=== PATIENT | female | born 1970 | race Caucasian/White ===

== ENCOUNTER → 2018-06-21 | Outpatient (CLI) | payer OTHER ==
[2018-06-21 14:39] LABS: Basophils # (A) 0.1 k/uL (0-0.2); Basophils % (A) 1 %; Eosinophils # (A) 0.3 k/uL (0-0.7); Eosinophils % (A) 5 %; HCT 37.8 % (34.0-46.0); HGB 11.4 gm/dL (11.4-16.0); Hypochromasia Slight; Lymphocytes # (A) 1.6 k/uL (1.0-4.8); Lymphocytes % (A) 24 %; MCHC 30.1 g/dL (31.0-37.0); MCV 83.3 fL (80.0-100.0); Mean Platelet Volume 6.3; Monocytes # (A) 0.3 k/uL (0-1.0); Monocytes % (A) 5 %; Neutrophils # (A) 4.1 k/uL (1.3-7.7); Neutrophils % (A) 63 %; Platelet Count 283 k/uL (150-450); RBC 4.54 m/uL (3.80-5.40); RDW 14.5 % (11.5-15.5); WBC 6.4 k/uL (3.8-10.6)
== END | disposition home or self-care (01) ==
LOC: LABPAT 13:15
PROVIDERS: ATTEND Obstetrics & Gynecology
DX: Z01.812 Encounter for preprocedural laboratory examination (principal); N92.0 Excessive and frequent menstruation with regular cycle; N94.6 Dysmenorrhea, unspecified
CPT/HCPCS: 36415; 85025

== ENCOUNTER 2018-07-05 07:52 | Day surgery (SDC) | payer OTHER ==
[2018-06-27 11:53] VITALS: BMI 31.1
--- NOTE | 2018-07-04 17:02 | HP ---
HISTORY AND PHYSICAL REASON FOR ADMISSION: Date of procedure will be 07/05/2018. HISTORY: This is a 47-year-old 2, para 2 woman with a longstanding history of pelvic pain, dysmenorrhea, and dysfunctional uterine bleeding. She was diagnosed by laparoscopy with endometriosis in 2001. She has heavy menses occurring every 3-6 weeks, lasting 4-5 days with severe pain that can keep her home from work. Evaluation with pelvic ultrasound and endometrial biopsy were benign with no pelvic abnormalities appreciated. She therefore elects to undergo NovaSure endometrial ablation with diagnostic hysteroscopy for control of her dysfunctional uterine bleeding. ALLERGY: None. MEDICATIONS: Ibuprofen 200 mg p.r.n. PAST MEDICAL HISTORY: Endometriosis. PAST SURGICAL HISTORY: Diagnostic laparoscopy in 1991 and 1996. RESIDENT INTERN PAST HISTORY: She is a 2, para 2 woman with history of 2 vaginal deliveries. She is not currently using control. No history of abnormal Pap smears or STDs. SOCIAL HISTORY: She is . Negative for tobacco, alcohol, and drug use. FAMILY HISTORY: Significant for heart attack in paternal grandmother and brain cancer in paternal grandfather. REVIEW OF SYSTEMS: Positive for fatigue, dysmenorrhea, pelvic pain, heavy menstrual bleeding. Negative for nausea, vomiting, diarrhea, constipation, shortness of breath, chest pain, headaches, fevers, chills, recent weight gain or weight loss. PHYSICAL EXAM: Height 5 feet 6-1/2 inches. Weight 204 pounds. Blood pressure 120/70. In general, this is a pleasant female in no obvious distress. HEENT exam is unremarkable with no palpable lymphadenopathy or thyromegaly. The lungs are clear to auscultation bilaterally and the heart is of regular rate and rhythm with no detectable murmur. ABDOMEN: Soft and nontender with no rebound, no guarding and no flank pain. On pelvic examination, she has normal female external genitalia without lesions or irritation. On bimanual examination, uterus is small, mobile and in the midline and there are no adnexal adenopathy palpable. ASSESSMENT: This is a 47-year-old 2, para 2 woman with a longstanding history of pelvic pain, dysmenorrhea, and dysfunctional uterine bleeding. She is scheduled to undergo diagnostic hysteroscopy with NovaSure endometrial ablation on 07/05/2018. Risks of this procedure include, but are not limited to bleeding, infection, uterine perforation, ongoing bleeding and/or postprocedure pelvic pain. The patient understands these risks and agrees to proceed. She also understands this is not a contraceptive procedure and that is contraindicated and can be quite complicated after the procedure. She and her acknowledge this and plan to use condoms as needed. MMODL / IJN: [id number] /
[~2018-07-05 07:52] MED LIST: DEXAMETHASONE SOD PHOSPHATE 10 MG/ML 1 ML VIAL IV ONE; HYDROmorphone 0.5 MG/0.5 ML SYRINGE IVP PRN; LACTATED RINGERS 1,000 ML IV SCH; LIDOCAINE 1% 20 ML VIAL (10MG/ML) FOR IV START INTRADERMA PRN; MIDAZOLAM 2 MG/2 ML VIAL IV PRN; ONDANSETRON 4 MG/2 ML VIAL IVP ONE; Pre Op ABX Message 1 EACH MISC MISCELLANE ONE; SCOPOLAMINE 1.5MG/72HR PATCH TRANSDERM ONE
[2018-07-05] MEDS ORDERED: KETOROLAC 30 MG/ML 1 ML VIAL ONE (09:23)
[2018-07-05] MEDS ORDERED: PROPOFOL 10 MG/ML 20 ML VIAL IV ONE (09:23)
[2018-07-05] MEDS ORDERED: MIDAZOLAM 2 MG/2 ML VIAL ONE (09:23)
[2018-07-05] MEDS ORDERED: LIDOCAINE 1% INJ 10MG/ML (20 ML MDV) ONE (09:23)
[2018-07-05] MEDS ORDERED: fentaNYL (PF) 50 MCG/ML 2 ML AMP ONE (09:23)
[2018-07-05] MEDS ORDERED: LIDOCAINE 1%-EPI 1:100,000 20 ML VIAL SUBMUCOSAL ONE ×2 (09:34→09:47)
--- NOTE | 2018-07-05 10:07 | P.OP ---
Date of Procedure: 07/05/18 Preoperative Diagnosis: Menometrorrhagia Dysmenorrhea Postoperative Diagnosis: Menometrorrhagia Dysmenorrhea Procedure(s) Performed: Diagnostic hysteroscopy, NovaSure endometrial ablation Anesthesia: MAC Surgeon: Lizet Yu Estimated Blood Loss (ml): 5 IV fluids (ml): 400 Urine output (ml): 50 Pathology: none sent Condition: stable Disposition: PACU Operative Findings: Fluffy endometrium with no gross intracavitary lesions Description of Procedure: After the patient and her family were met in the preoperative holding area and all questions were answered, she was taken to the operating room where anesthetic was administered without incident. She was in positioned, prepped and draped in the dorsal lithotomy position. Bladder was drained for approximately 50 mL of clear urine. Speculum was placed in the vagina and the cervix was grasped anteriorly with a single-tooth tenaculum. Paracervical block with lidocaine plus epinephrine was placed. The cervix sounded to 8.0 cm. The cervix was then sequentially dilated with Hegar dilators to allow for passage of the diagnostic hysteroscope. Hysteroscope was introduced and the above findings were noted. The hysteroscope was removed and the cervix was further dilated to allow for passage of the NovaSure ablation device. The device was inserted with a cavity length of 5.0 cm, width of 3.3 cm. cavity assessment test was passed and the device was enabled for a treatment cycle of 72 seconds with a power of 91 W. Following cessation of the treatment cycle the device was removed and the hysteroscope was reintroduced. Unfortunately there was an area at the fundus of the uterus that did not appear to be completely blanched however the remainder of the uterus showed the good desiccation. The hysteroscope was removed as was the tenaculum. The cervix was observed and hemostasis was noted. All instruments were then removed from the vagina and the patient was awoken from anesthetic. She is transported recovery area in stable condition. All counts reported to me as correct.
[2018-07-05 10:17] VITALS: TEMP 97.7
[2018-07-05] MEDS ORDERED: LACTATED RINGERS 1,000 ML IV ONE (10:34)
[2018-07-05] MEDS ORDERED: IBUPROFEN 200 MG TAB PO ONE (11:35)
[2018-07-05 12:29] VITALS: BP 136/88; PULSE 70; RESP 18
== END 2018-07-05 12:09 | disposition home or self-care (01) ==
LOC: OR 07:52
PROVIDERS: ATTEND Obstetrics & Gynecology
DX: N92.1 Excessive and frequent menstruation with irregular cycle (principal); N94.6 Dysmenorrhea, unspecified; R10.2 Pelvic and perineal pain; N93.8 Other specified abnormal uterine and vaginal bleeding; N80.9 Endometriosis, unspecified; Z80.8 Family history of malignant neoplasm of other organs or systems
CPT/HCPCS: 58563; 81025; J2250; J1100; J2405; J2001; J3010; J1885; J2704; J1170

== ENCOUNTER → 2018-07-19 | Outpatient (CLI) | payer OTHER ==
--- NOTE | 2018-07-19 13:20 | ECHOF ---
Referral Reason:R07.89 chest pain MEASUREMENTS -------- HEIGHT: 172.7 cm WEIGHT: 93.0 kg BP: IVSd: 1.1 cm (0.6 - 1.1) LVIDd: 3.5 cm (3.9 - 5.3) LVPWd: 1.2 cm (0.6 - 1.1) IVSs: 1.5 cm LVIDs: 1.7 cm LVPWs: 1.5 cm LAESV Index (A-L): 18.09 ml/m Ao Diam: 3.1 cm (2.0 - 3.7) AV Cusp: 2.0 cm (1.5 - 2.6) LA Diam: 3.0 cm (2.7 - 3.8) MV EXCURSION: 17.701 mm (> 18.000) MV EF SLOPE: 170 mm/s (70 - 150) MV E Jose C: 0.72 m/s MV DecT: 150 ms MV A Jose C: 0.82 m/s MV E/A Ratio: 0.88 RAP: 5.00 mmHg RVSP: 25.25 mmHg FINDINGS -------- Sinus rhythm. Undetermined rhythm. This was a technically good study. The left ventricular size is normal. There is borderline concentric left ventricular hypertrophy. Overall left ventricular systolic function is normal with, an EF between 55 - 60 %. The right ventricle is normal in size. Normal LA size by volume 22+/-6 ml/m2. The right atrial size is normal. The aortic valve is trileaflet and appears structurally normal. There is trace mitral regurgitation. Trace tricuspid regurgitation present. The right ventricular systolic pressure, as measured by Dopp ler, is 25.25mmHg. There is no pulmonic regurgitation present. The aortic root size is normal. Normal inferior vena cava with normal inspiratory collapse consistent with estimated right atrial pre ssure of 5 mmHg. There is no pericardial effusion. CONCLUSIONS -------- 1. Sinus rhythm. 2. Undetermined rhythm. 3. This was a technically good study. 4. The left ventricular size is normal. 5. There is borderline concentric left ventricular hypertrophy. 6. Overall left ventricular systolic function is normal with, an EF between 55 - 60 %. 7. The right ventricle is normal in size. 8. Normal LA size by volume 22+/-6 ml/m2. 9. The right atrial size is normal. 10. The aortic valve is trileaflet and appears structurally normal. 11. There is trace mitral regurgitation. 12. Trace tricuspid regurgitation present. 13. The right ventricular systolic pressure, as measured by Doppler, is 25.25mmHg. 14. There is no pulmonic regurgitation present. 15. The aortic root size is normal. 16. Normal inferior vena cava with normal inspiratory collapse consistent with estimated right atrial pressure of 5 mmHg. 17. There is no pericardial effusion. APPLICATION DEVELOPMENT TEAM LEAD: Beth Shearer RDCS
--- NOTE | 2018-07-19 13:59 | EST ---
EXERCISE STRESS AGE: 47 SEX: F HT: 68" WT: 205 PROTOCOL: Arnoldo Stress Test STAGE: 2 DURATION OF EXERCISE: 6:00 HEART RATE REST: 82 BLOOD PRESSURE REST: 115/77 MAXIMUM HEART RATE ACHIEVED: 147 MAXIMUM BLOOD PRESSURE: 220/91 85% MPHR: 145 100% MPHR: 171 METS: 7.3 INDICATIONS: Chest pain. CLINICAL INFORMATION: Baseline EKG revealed normal sinus rhythm with voltage criteria for LVH and also mild ST abnormality to begin with. Patient walked for 6 minutes, achieved a maximal heart rate of 147 beats per minute which is 86% of predicted maximal. She developed fatigue and shortness of breath but did not have any anginal symptoms. EKG revealed more prominent inferolateral ST-segment abnormality. However, given her resting EKG changes, these are considered inconclusive findings. No anginal symptoms were noted. No arrhythmia was noted. The patient had hypertensive response and peak blood pressure was 220/91 and resting blood pressure was 115/77. By EKG criteria, this is considered as an inconclusive stress test because of resting EKG changes with limited exercise capacity. If myocardial ischemia is strongly suspected, I would recommend optimizing her blood pressure control and then performing either a stress echo or cardiac catheterization. Possibility of this being a false-positive should also be considered. MMODL / IJN: [id number] /
== END ==
LOC: RADNMMAIN 10:26
PROVIDERS: ATTEND Family Medicine
DX: R07.89 Other chest pain (principal); I51.7 Cardiomegaly
CPT/HCPCS: 93017; 93306

== ENCOUNTER → 2018-08-04 | Day surgery (SDC) | payer OTHER ==
[2018-08-02 13:02] VITALS: BMI 31.1
[~2018-08-04] MED LIST changes: -DEXAMETHASONE SOD PHOSPHATE 10 MG/ML 1 ML VIAL IV ONE; -HYDROmorphone 0.5 MG/0.5 ML SYRINGE IVP PRN; +LIDOCAINE 1% INJ 10MG/ML (20 ML MDV) ONE; -MIDAZOLAM 2 MG/2 ML VIAL IV PRN; -ONDANSETRON 4 MG/2 ML VIAL IVP ONE; +ONDANSETRON 4 MG/2 ML VIAL ONE; +PROPOFOL 10 MG/ML 20 ML VIAL IV ONE; -Pre Op ABX Message 1 EACH MISC MISCELLANE ONE; -SCOPOLAMINE 1.5MG/72HR PATCH TRANSDERM ONE
--- NOTE | 2018-08-04 09:16 | P.GSHP ---
History of Present Illness H&P Date: 08/04/18 CHIEF COMPLAINT: Colon screen HISTORY OF PRESENT ILLNESS: The patient is a 47-year-old female who presents for colon screen. Lower endoscopy was offered for further evaluation and management. PAST MEDICAL HISTORY: Please see list. PAST SURGICAL HISTORY: Please see list. MEDICATIONS: Please see list. ALLERGIES: Please see list. SOCIAL HISTORY: No illicit drug use FAMILY HISTORY: No reports of Crohn disease or ulcerative colitis. REVIEW OF ORGAN SYSTEMS: CONSTITUTIONAL: No reports of fevers or chills. PHYSICAL EXAM: VITAL SIGNS: Stable GENERAL: Well-developed pleasant in no acute distress. HEENT: No scleral icterus. Extraocular movements grossly intact. Moist buccal mucosa. NECK: Supple without lymphadenopathy. CHEST: Unlabored respirations. Equal bilateral excursions. CARDIOVASCULAR: Regular rate and rhythm. Distal 2+ pulses. ABDOMEN: Soft, nontender, nondistended. MUSCULOSKELETAL: No clubbing, cyanosis, or edema. ASSESSMENT: 1. Colon screen. PLAN: 1. Recommend proceeding with a lower endoscopy Past Medical History Past Medical History: Chest Pain / Angina, Musculoskeletal Disorder Additional Past Medical History / Comment(s): LOW BACK PAIN & PINCHED NERVE NECK CAUSES HEADACHE SEES CHIROPRACTOR. HEAVY MENSTRUAL PERIODS; ENDOMETRIOSIS. CP FEW WEEKS AGO, HAD STRESS TEST & ECHO. History of Any Multi-Drug Resistant Organisms: None Reported Past Surgical History: Uterine Ablation Additional Past Surgical History / Comment(s): EXPLORATORY LAP. 07/05/18 UTERINE ABLATION. Past Anesthesia/Blood Transfusion Reactions: Previous Problems w/ Anesthesia, Family History of Problems w/ Anesthesia, Postoperative Nausea & Vomiting (PONV) Additional Past Anesthesia/Blood Transfusion Reaction / Comment(s): PATIENT HAS DIFFICULTY WAKING UP AFTER SURGERY. MOTHER AND GRANDMOTHER = PONV & DIFFICULTY WAKING UP. Smoking Status: Never smoker - Past Family History Mother Family Medical History: No Reported History Medications and Allergies Home Medications Medication Instructions Recorded Confirmed Type Cholecalciferol [Vitamin D3] 5,000 unit PO DAILY 06/27/18 08/02/18 History Ferrous Sulfate [Feosol] 325 mg PO DAILY 06/27/18 08/02/18 History Ibuprofen 600 mg PO DIRECTED PRN 06/27/18 08/02/18 History diphenhydrAMINE [Benadryl] 25 mg PO BID PRN 06/27/18 08/02/18 History Allergies Allergy/AdvReac Type Severity Reaction Status Date / Time No Known Allergies Allergy Verified 08/02/18 12:46
[2018-08-04 09:48] VITALS: RESP 16; TEMP 97.6
--- NOTE | 2018-08-04 10:40 | P.PCN ---
Date of Procedure: 08/04/18 Description of Procedure: PREOPERATIVE DIAGNOSIS: Family history of colon cancer Personal history of colon polyps Colonoscopy screening POSTOPERATIVE DIAGNOSIS: Family history of colon cancer Personal history of colon polyps Colonoscopy screening OPERATION: Colonoscopy to the ileocecal valve and appendiceal orifice. SURGEON: Kacy yIer MD. ANESTHESIA: MAC. INDICATIONS: The patient is a 47-year-old female who presents for colonoscopy screening. Benefits and risks were described and informed consent was obtained. DESCRIPTION OF PROCEDURE: The patient had undergone Gatorade, MiraLAX and Dulcolax prep. She had been brought into the operating room and laid in the left lateral decubitus position. After adequate intravenous sedation, the rectum was examined with 2% lidocaine jelly. No external hemorrhoids were encountered. The rectal tone was within normal limits. No lesions were palpated in the rectal vault. An Olympus colonoscope was advanced until the ileocecal valve and appendiceal orifice were clearly viewed. The prep was good. The scope was removed with visualization of each mucosal fold. No scattered diverticulosis was encountered. No colonic polyps were found. No evidence of focal colitis was found. Retroflexion of the scope demonstrated grade 1 internal hemorrhoids without active bleeding or inflammation. The colon was desufflated. The patient had tolerated the procedure well. Withdrawal time was over 6 minutes. FINDINGS: Aronchick preparation quality scale 1 (1-5) No internal hemorrhoids No external prolapsed hemorrhoids. No arteriovenous malformations. No adenomatous polyps. No focal colitis. No scattered diverticulosis was encountered. RECOMMENDATIONS: Lower endoscopy in 5 years, 2023. Plan - Discharge Summary Discharge Rx Participant: No New Discharge Prescriptions: No Action Cholecalciferol [Vitamin D3] 5,000 unit PO DAILY diphenhydrAMINE [Benadryl] 25 mg PO BID PRN PRN Reason: Allergy Symptoms Ferrous Sulfate [Feosol] 325 mg PO DAILY Ibuprofen 600 mg PO DIRECTED PRN PRN Reason: Pain Discharge Medication List Cholecalciferol [Vitamin D3] 5,000 unit PO DAILY 06/27/18 [History] Ferrous Sulfate [Feosol] 325 mg PO DAILY 06/27/18 [History] Ibuprofen 600 mg PO DIRECTED PRN 06/27/18 [History] diphenhydrAMINE [Benadryl] 25 mg PO BID PRN 06/27/18 [History] Follow up Appointment(s)/Referral(s): Kacy Iyer MD [STAFF PHYSICIAN] - 09/06/18 Patient Instructions/Handouts: *[facility] - (Anesthesia) Endoscopy Discharge Instructions, Colonoscopy (DC) Activity/Diet/Wound Care/Special Instructions: Repeat colonoscopy in 5 years, 2023 Discharge Disposition: HOME SELF-CARE
[2018-08-04 10:53] VITALS: BP 126/78; PULSE 74
== END | disposition home or self-care (01) ==
LOC: ORWHC2ENDO 09:11
PROVIDERS: ATTEND Surgery Plastic and Reconstructive Surgery
DX: Z12.11 Encounter for screening for malignant neoplasm of colon (principal); K64.0 First degree hemorrhoids; I20.9 Angina pectoris, unspecified; Z86.010 Personal history of colon polyps; Z80.0 Family history of malignant neoplasm of digestive organs; G58.8 Other specified mononeuropathies; M54.12 Radiculopathy, cervical region; Z79.1 Long term (current) use of non-steroidal anti-inflammatories (NSAID)
CPT/HCPCS: 81025; J2405; J2001; J2704; G0105

== ENCOUNTER → 2019-10-20 | Outpatient (CLI) | payer OTHER ==
[2019-10-20 12:40] LABS: Basophils # (A) 0.1 k/uL (0-0.2); Basophils % (A) 1 %; Eosinophils # (A) 0.3 k/uL (0-0.7); Eosinophils % (A) 5 %; HCT 41.2 % (34.0-46.0); HGB 13.1 gm/dL (11.4-16.0); Lymphocytes # (A) 1.5 k/uL (1.0-4.8); Lymphocytes % (A) 26 %; MCH 27.3 pg (25.0-35.0); MCHC 31.7 g/dL (31.0-37.0); MCV 86.3 fL (80.0-100.0); Mean Platelet Volume 7.1; Monocytes # (A) 0.2 k/uL (0-1.0); Monocytes % (A) 4 %; Neutrophils # (A) 3.6 k/uL (1.3-7.7); Neutrophils % (A) 62 %; Platelet Count 244 k/uL (150-450); RBC 4.78 m/uL (3.80-5.40); RDW 13.4 % (11.5-15.5); WBC 5.8 k/uL (3.8-10.6)
[2019-10-20 12:53] LABS: African American GFR (CKD) >90 (>60 ml/min/1.73 sqM); Anion Gap 8 mmol/L; Blood Urea Nitrogen 15 mg/dL (7-17); Carbon Dioxide 23 mmol/L (22-30); Chloride 107 mmol/L (98-107); Glucose 115 mg/dL (74-99); Non-African American GFR(CKD) >90 (>60 ml/min/1.73 sqM); Potassium 4.6 mmol/L (3.5-5.1); Sodium 138 mmol/L (137-145)
== END | disposition home or self-care (01) ==
LOC: LABPAT 10:59
PROVIDERS: ATTEND Obstetrics & Gynecology Obstetrics
DX: Z01.818 Encounter for other preprocedural examination (principal); N85.7 Hematometra
CPT/HCPCS: 80051; 82565; 82947; 84520; 85025; 87086

== ENCOUNTER → 2019-10-26 | Outpatient (CLI) | payer OTHER | END | disposition home or self-care (01) | LOC: LABWHC1 10:10 | PROVIDERS: ATTEND Obstetrics & Gynecology Obstetrics | DX: Z01.810 Encounter for preprocedural cardiovascular examination (principal) | CPT/HCPCS: 36415; 93005 ==

== ENCOUNTER 2019-10-30 07:20 | Day surgery (SDC) | payer OTHER ==
[2019-10-25 15:41] VITALS: BMI 28.8
[~2019-10-30 07:20] MED LIST changes: +DEXAMETHASONE SOD PHOSPHATE 10 MG/ML 1 ML VIAL IV ONE; +HYDROmorphone 0.5 MG/0.5 ML SYRINGE IVP PRN; -LACTATED RINGERS 1,000 ML IV SCH; +LIDOCAINE 1% (10MG/ML) FOR IV START INTRADERMA PRN; -LIDOCAINE 1% 20 ML VIAL (10MG/ML) FOR IV START INTRADERMA PRN; -LIDOCAINE 1% INJ 10MG/ML (20 ML MDV) ONE; -ONDANSETRON 4 MG/2 ML VIAL ONE; -PROPOFOL 10 MG/ML 20 ML VIAL IV ONE; +SCOPOLAMINE 1.5MG/72HR PATCH TRANSDERM ONE
[2019-10-30] MEDS ORDERED: ONDANSETRON 4 MG/2 ML VIAL ONE (07:56)
[2019-10-30] MEDS: LACTATED RINGERS 1,000 ML IV SCH ×2 (08:00→09:10)
[2019-10-30] MEDS: ACETAMINOPHEN IV (For NPO) 1,000 MG in EMPTY BAG 1 BAG IVPB ONE ×2 (08:10→09:10)
[2019-10-30] MEDS: ONDANSETRON 4 MG/2 ML VIAL IVP ONE ×2 (08:16→11:50)
[2019-10-30] MEDS ORDERED: LIDOCAINE 1% INJ 10MG/ML (20 ML MDV) ONE (09:06)
[2019-10-30] MEDS ORDERED: PROPOFOL 10 MG/ML 20 ML VIAL IV ONE (09:06)
[2019-10-30] MEDS ORDERED: fentaNYL (PF) 50 MCG/ML 2 ML AMP ONE (09:06)
[2019-10-30] MEDS ORDERED: SUCCINYLCHOLINE CHLORIDE 100 MG/5 ML SYR IV ONE (09:06)
[2019-10-30] MEDS ORDERED: MIDAZOLAM 2 MG/2 ML VIAL ONE (09:06)
[2019-10-30] MEDS ORDERED: NEOSTIGMINE 1 MG/ML 10 ML VIAL ONE (09:06)
[2019-10-30] MEDS ORDERED: GLYCOPYRROLATE 0.2 MG/ML 2 ML VIAL ONE (09:06)
[2019-10-30] MEDS ORDERED: ROCURONIUM BROMIDE 10 MG/ML 5 ML VIAL IV ONE (09:06)
[2019-10-30] MEDS ORDERED: Acetaminophen-Codeine 300-30mg TAB PO PRN ×2 (09:11)
[2019-10-30] MEDS ORDERED: IBUPROFEN 600 MG TAB PO PRN (09:11)
[2019-10-30] MEDS ORDERED: ONDANSETRON 4 MG/2 ML VIAL IVP PRN (09:11)
[2019-10-30] MEDS ORDERED: SIMETHICONE 80 MG CHEWABLE PO PRN (09:11)
[2019-10-30] MEDS ORDERED: BUPIVACAINE (PF) 0.25% 30 ML VIAL SQ ONE (10:09)
[2019-10-30] MEDS ORDERED: IBUPROFEN IV 800 MG in SODIUM CHLORIDE 0.9% 250 ML IV ONE (10:49)
--- NOTE | 2019-10-30 10:58 | P.OP ---
Date of Procedure: 10/30/19 Preoperative Diagnosis: Hematometra, pelvic pain, left lower quadrant pain Postoperative Diagnosis: Same plus endometriosis Procedure(s) Performed: Robotic-assisted vaginal hysterectomy with bilateral salpingo-oophorectomy, diagnostic cystoscopy Anesthesia: GRZEGORZ Surgeon: Alison Calixto Flatbed Driver #1: Lizet Yu Estimated Blood Loss (ml): 50 IV fluids (ml): 500 Urine output (ml): 100 Pathology: other (Uterus cervix bilateral fallopian tubes and ovaries) Condition: stable Disposition: PACU Indications for Procedure: This pleasant 48-year-old female underwent endometrial ablation in July 2018, and had increased pain. Patient presented for ultrasound in the office and noted an endometrial was visualized. She has a prior history of endometriosis diagnosed by laparoscopy, on ultrasound in addition she had a noted left endometrioma. Patient desired definitive treatment with hysterectomy. Operative Findings: Enlarged globular uterus multiple endometrial implants bilateral ovaries adherent to the posterior uterine wall/pelvic sidewall. Diagnostic cystoscopy is performed after procedure, normal bladder mucosa is noted circumferentially after a complete survey of the bladder both ureteral orifices were spilling clear yellow urine. Description of Procedure: Patient was seen in the preoperative area and informed consent is obtained. Risks are reviewed and patient states understanding. Patient was taken back to the operating suite where general anesthesia was obtained without difficulty by the anesthesia department. She was prepped and draped in normal sterile fashion in the dorsal lithotomy position. A weighted speculum was placed in the posterior vaginal vault the interval of the cervix was grasped with a single- tooth tenaculum. Endocervical canal was dilated and a V care uterine manipulator was advanced into the uterus as a means to manipulate the uterus strep procedure the cervical cap was placed snugly against the cervix and all instruments were removed. Attention was then turned the patient's abdomen where approximately 2 finger breaths above the umbilicus a small skin incision is made. Through this incision the Veress needles placed. Once the Veress needle was deemed to be in the proper position with a drop of CO2 pressure CO2 insufflation was allowed to occur. 3 L of gas or used to obtain pneumoperi toneum. At this time the additional port sites are placed at 10 cm lateral and 3/7 inferior to midline port these are 8 mm ports and placed under direct visualization. The left upper quadrant a 12 mm trocar and sleeve is placed under direct visualization. The da Jillian robot was docked in the usual fashion at this time. The operative ports are now placed in the right operative arm the monopolar scissors is placed in the left operative arm the bipolar forceps is placed. Attention then turned to the to the left adnexa the left fallopian tube was grasped and the ovary and fallopian tube were bluntly dissected off of the posterior pelvic sidewall and uterus. Drainage of endometrioma on the left ovary was noted at the time of dissection. The left infundibulopelvic ligament was visualized at this time grasped distally and proximal plane divided. Hemostasis was appreciated. This continued through the broad and toward the round which was coagulated distally and proximally divided. Multiple collateral vessels were noted and these were grasped coagulated and transected. Hemostasis was appreciated. The bladder flap from the left was then created using sharp and blunt dissection. Attention then turned to the patient's right adnexa which was also noted to be adherent to the posterior uterine wall/pelvic sidewall. The right ovary was bluntly dissected off of the posterior uterine wall the right infundibulopelvic ligament was visualized coagulated distally approximately divided. Hemostasis was appreciated. This continued through the broad toward the round which is coagulative distally proximal plane divided. The bladder flap from the right was then created using sharp and blunt dissection once again collateral vasculature was noted anteriorly these were coagulated distally proximal plane divided hemostasis was appreciated. The ascending branch the uterine artery on the right was visualized regular distally and proximally and divided. This was then repeated on the opposite side. At this time the uterus is noted to be. The ulnar remaining attachment at this time was a vaginal attachment therefore colpotomy incision was made and circumference of fashion uterus fallopian tubes and ovaries were then delivered through the vaginal opening. The pelvis then copiously irrigated. The vaginal cuff was then closed with 0 Vicryl in a [id number] fashion 4. Hemostasis was appreciated. At this time the da Jillian robot was undocked and all instrument were removed. Attention was then turned the patient's Ma catheter which was removed without difficulty of note the urine was noted be clear throughout the procedure. The cystoscope was opened placed through the urethra toward the bladder bladder bubble was noted a complete survey of the bladder noted normal bladder mucosa both ureteral orifices were spilling clear yellow urine. The cystoscope was removed and the Ma catheter was replaced. Attention then turned the patient's abdomen where the skin incisions were closed with 4-0 Vicryl in a subcu fashion Steri-Strips and sterile dressings were applied as needed. Lidocaine was instilled in the fall. All counts were noted be correct 2. Patient tolerated procedure well was taken the recovery room awake in stable condition.
[2019-10-30] MEDS ORDERED: LACTATED RINGERS 1,000 ML IV ONE (12:11)
[2019-10-30] MEDS: BENZOCAINE/MENTHOL LOZENG 1 EACH LOZENGE MUCOUS MEM PRN ×2 (16:57→21:26)
[2019-10-30] MEDS: SENNOSIDES-DOCUSATE SODIUM 1 EACH TAB PO SCH (19:54)
[2019-10-31 05:16] VITALS: RESP 16
[2019-10-31 06:12] LABS: Basophils % (A) 0 %; Eosinophils # (A) 0.1 k/uL (0-0.7); Eosinophils % (A) 0 %; HCT 39.7 % (34.0-46.0); HGB 12.9 gm/dL (11.4-16.0); Lymphocytes # (A) 1.2 k/uL (1.0-4.8); Lymphocytes % (A) 8 %; MCHC 32.5 g/dL (31.0-37.0); MCV 86.2 fL (80.0-100.0); Mean Platelet Volume 7.1; Monocytes # (A) 0.5 k/uL (0-1.0); Monocytes % (A) 4 %; Neutrophils # (A) 12.9 k/uL (1.3-7.7); Neutrophils % (A) 87 %; Platelet Count 247 k/uL (150-450); RDW 13.1 % (11.5-15.5); WBC 14.8 k/uL (3.8-10.6)
[2019-10-31] MEDS: LACTATED RINGERS 1,000 ML IV SCH (06:35)
--- NOTE | 2019-10-31 08:27 | P.DS ---
Providers Date of admission: 10/30/2019 Expected date of discharge: 10/31/19 Attending physician: Alison Calixto Primary care physician: Antoine Hanna - Discharge Diagnosis(es) (1) Hematometra Current Visit: Yes Status: Acute (2) Endometrioma of ovary Current Visit: Yes Status: Acute (3) LLQ pain Current Visit: Yes Status: Acute (4) Endometriosis Current Visit: Yes Status: Acute Hospital Course: This pleasant 48-year-old female presented to the hospital yesterday for planned robotic-assisted vaginal hysterectomy with left salpingo-for ectomy, diagnostic cystoscopy. Patient has a known history of endometriosis. Patient had an endometrial ablation done in July which initially was successful subsequently started having increased pain, ultrasound was completed and endometrial was noted. In addition left ovarian endometrioma was visualized. Patient elected definitive treatment given these findings and her history of endometriosis. She was taken back to the operating suite where bilateral endometriomas were noted. Surgery was completed without difficulty. For further details on the surgery please see the operative report. Patient's postoperative course has been uneventful. On this postop day #1 she is ambulatory and voiding without difficulty. She states her pain is well- controlled. She denies concerns. She notes positive bowel sounds, and denies vaginal bleeding. Patient Condition at Discharge: Good Plan - Discharge Summary Discharge Rx Participant: Yes New Discharge Prescriptions: No Action diphenhydrAMINE [Benadryl] 25 mg PO BID PRN PRN Reason: Allergy Symptoms Ibuprofen 400 mg PO DIRECTED PRN PRN Reason: Pain traMADol HCL [Ultram] 50 mg PO Q6HR PRN PRN Reason: Pain lisinopriL [Zestril] 10 mg PO DAILY Cholecalciferol (Vitamin D3) [Vitamin D3] 125 mcg PO Q48H Discharge Medication List Ibuprofen 400 mg PO DIRECTED PRN 06/27/18 [History] diphenhydrAMINE [Benadryl] 25 mg PO BID PRN 06/27/18 [History] Cholecalciferol (Vitamin D3) [Vitamin D3] 125 mcg PO Q48H 10/25/19 [History] lisinopriL [Zestril] 10 mg PO DAILY 10/25/19 [History] traMADol HCL [Ultram] 50 mg PO Q6HR PRN 10/25/19 [History] Patient Instructions/Handouts: Vaginal Delivery (DC), Vaginal Delivery (GEN) Discharge Disposition: HOME SELF-CARE
[2019-10-31 08:59] VITALS: BP 119/69; PULSE 66; TEMP 98.3
[2019-10-31] MEDS: SENNOSIDES-DOCUSATE SODIUM 1 EACH TAB PO SCH (09:22)
== END 2019-10-31 09:15 | disposition home or self-care (01) ==
LOC: OR 07:20 → 4FBP 11:17 → OR 10-31 09:15
PROVIDERS: ATTEND Obstetrics & Gynecology Obstetrics
DX: D25.1 Intramural leiomyoma of uterus (principal); N80.1 Endometriosis of ovary; N72 Inflammatory disease of cervix uteri; N80.0 Endometriosis of uterus; N70.11 Chronic salpingitis; N83.12 Corpus luteum cyst of left ovary; N83.11 Corpus luteum cyst of right ovary; N83.291 Other ovarian cyst, right side
CPT/HCPCS: 81025; 86900; 86901; 85025; 86850; 88307; 58552; J1100; J0690; J2405; J0131; J1741; J1170

== ENCOUNTER → 2020-03-15 | Outpatient (CLI) | payer OTHER ==
--- NOTE | 2020-03-15 14:40 | MM ---
Reason for exam: screening (asymptomatic). Baseline mammogram. History: Patient is postmenopausal. Took hormonal contraceptives beginning at age 17. Physical Findings: Nurse did not find any significant physical abnormalities on exam. MG Screening Mammo w CAD Bilateral CC and MLO view(s) were taken. XCCL view(s) were taken of the right breast. The breast tissue is heterogeneously dense. This may lower the sensitivity of mammography. There is no discrete abnormality. These results were verbally communicated with the patient and result sheet given to the patient on 03/15/20. ASSESSMENT: Benign, BI-RAD 2 RECOMMENDATION: Routine screening mammogram of both breasts in 1 year.
== END | disposition home or self-care (01) ==
LOC: RADMAMWWP 13:33
PROVIDERS: ATTEND Obstetrics & Gynecology
DX: Z12.31 Encounter for screening mammogram for malignant neoplasm of breast (principal)
CPT/HCPCS: 77067

== ENCOUNTER → 2022-11-17 | Outpatient (CLI) | payer OTHER ==
--- NOTE | 2022-11-17 08:50 | MM ---
Reason for Exam: Screening (asymptomatic). Last mammogram was performed 2 year(s) and 8 month(s) ago. Patient History: Menarche at age 11. First Full-Term at age 24. Left ovary removed at age 48. Right ovary removed at age 48. Hysterectomy at age 48. Postmenopausal. Hormonal Contraceptives, from age 17 until age 30. Currently using Estrogen and Progesterone, starting at age 48. Risk Values: Blanca 5 year model risk: 1.2%. NCI Lifetime model risk: 9.4%. Prior Study Comparison: 03/15/2020 Bilateral Screening Mammogram, [facility]. Tissue Density: The breast tissue is heterogeneously dense. This may lower the sensitivity of mammography. Findings: Analyzed By CAD. There is no suspicious group of microcalcifications or new suspicious mass in either breast. Overall Assessment: Negative, BI-RAD 1 Management: Screening Mammogram of both breasts in 1 year. A clinical breast exam by your physician is recommended on an annual basis and results should be correlated with mammographic findings. Note on Blanca scores and lifetime risk: 1. A Blanca score greater than 3% is considered moderate risk. If this is the case, consider specialist referral to assess eligibility for a risk reducing agent. If overall lifetime risk for the development of breast cancer is 20% or higher, the patient may qualify for future screening with alternating mammogram and breast MRI. Electronically signed and approved by: Gerson Parker D.O.
== END | disposition home or self-care (01) ==
LOC: RADMAMWWP 07:58
PROVIDERS: ATTEND Obstetrics & Gynecology
DX: Z12.31 Encounter for screening mammogram for malignant neoplasm of breast (principal); Z78.0 Asymptomatic menopausal state
CPT/HCPCS: 77067

== ENCOUNTER 2023-08-03 09:04 | Emergency (ER) | payer OTHER ==
[2023-08-03 09:15] LABS: Glucose,Whole Blood 193 mg/dL (70-110)
[2023-08-03 09:35] VITALS: RESP 16; TEMP 98
--- NOTE | 2023-08-03 10:02 | ED ---
General Adult HPI - General Chief complaint: Syncope Stated complaint: syncope Time Seen by Provider: 08/03/23 09:07 Source: patient Mode of arrival: wheelchair Limitations: no limitations - History of Present Illness Initial comments: Dictation was produced using [employer] dictation software. please excuse any grammatical, word or spelling errors. Chief Complaint: 52-year-old female with syncopal episode History of Present Illness: Patient 52-year-old female she was sent to the emergency department from the urgent care. Patient states that her symptoms began 2 days ago where she had an episode where she felt like she was feeling hot flash. Patient then found herself on the floor. Patient states that she did come have some neck pain left shoulder and left elbow pain. Patient did also notice that there was some vomiting next to her. Today she still feeling a little lightheaded. Patient denies any history of cardiac disease. Patient denies any significant medical history. The ROS documented in this emergency department record has been reviewed and confirmed by me. Those systems with pertinent positive or negative responses have been documented in the HPI. All other systems are other negative and/or noncontributory. - Related Data Home Medications Medication Instructions Recorded Confirmed Ibuprofen 400 mg PO DIRECTED PRN 06/27/18 10/30/19 diphenhydrAMINE [Benadryl] 25 mg PO BID PRN 06/27/18 10/30/19 Cholecalciferol (Vitamin D3) 125 mcg PO Q48H 10/25/19 10/30/19 [Vitamin D3] lisinopriL [Zestril] 10 mg PO DAILY 10/25/19 10/30/19 traMADol HCL [Ultram] 50 mg PO Q6HR PRN 10/25/19 10/30/19 Allergies Allergy/AdvReac Type Severity Reaction Status Date / Time No Known Allergies Allergy Verified 08/03/23 09:13 Review of Systems ROS Statement: Those systems with pertinent positive or pertinent negative responses have been documented in the HPI. ROS Other: All systems not noted in ROS Statement are negative. Past Medical History Past Medical History: Chest Pain / Angina, Musculoskeletal Disorder Additional Past Medical History / Comment(s): LOW BACK PAIN & PINCHED NERVE NECK CAUSES HEADACHE SEES CHIROPRACTOR. HEAVY MENSTRUAL PERIODS; ENDOMETRIOSIS. CP FEW WEEKS AGO, HAD STRESS TEST & ECHO., Patient takes hormones (testosterone pellet every 3 months) (progesteron every night) History of Any Multi-Drug Resistant Organisms: None Reported Past Surgical History: Uterine Ablation Additional Past Surgical History / Comment(s): EXPLORATORY LAP. 07/05/18 UTERINE ABLATION. colonoscopy Past Anesthesia/Blood Transfusion Reactions: Previous Problems w/ Anesthesia, Family History of Problems w/ Anesthesia, Postoperative Nausea & Vomiting (PONV) Additional Past Anesthesia/Blood Transfusion Reaction / Comment(s): PATIENT HAS DIFFICULTY WAKING UP AFTER SURGERY. MOTHER AND GRANDMOTHER = PONV & DIFFICULTY WAKING UP. Past Psychological History: No Psychological Hx Reported Smoking Status: Never smoker Past Alcohol Use History: None Reported Past Drug Use History: None Reported - Past Family History Mother Family Medical History: No Reported History General Exam - General Exam Comments Initial Comments: PHYSICAL EXAM: General Impression: Alert and oriented x3, not in acute distress HEENT: Normocephalic atraumatic, extra-ocular movements intact, pupils equal and reactive to light bilaterally, mucous membranes moist, some swelling to the left supraclavicular space Cardiovascular: Heart regular rate and rhythm Chest: Able to complete full sentences, no retractions, no tachypnea Abdomen: abdomen soft, non-tender, non-distended, no organomegaly Musculoskeletal: Pulses present and equal in all extremities, no peripheral edema Motor: no focal deficits noted Neurological: CN II-XII grossly intact, no focal motor or sensory deficits noted Skin: Intact with no visualized rashes Psych: Normal affect and mood Limitations: no limitations Course Vital Signs 08/03/23 09:07 Temperature 98.0 F Pulse Rate 84 Respiratory 16 Rate Blood Pressure 118/73 O2 Sat by Pulse 100 Oximetry EKG Findings - EKG Comments: EKG Findings:: My EKG interpretation: Ventricular rate 83, sinus rhythm,. 139, cures 118, QTc 388. No CA prolongation, no QTC prolongation,. T wave inversions in the septal lateral precordial leads and inferior leads. Overall this EKG is nonspecific Medical Decision Making - Medical Decision Making Was pt. sent in by a medical professional or institution (, PA, RIDE MECHANIC, urgent care, hospital, or senior care...) When possible be specific @ -No Did you speak to anyone other than the patient for history (EMS, parent, family, police, friend...)? What history was obtained from this source @ -No Did you review nursing and triage notes (agree or disagree)? Why? @ -I reviewed and agree with nursing and triage notes Were old charts reviewed (outside hosp., previous admission, EMS record, old EKG, old radiological studies, urgent care reports/EKG's, senior care records)? Report findings @ -No old charts were reviewed Differential Diagnosis (chest pain, altered mental status, abdominal pain women, abdominal pain men, vaginal bleeding, musculoskeletal, weakness, fever, dyspnea, syncope, headache, dizziness, GI bleed, back pain, seizure, CVA, palpatations, mental health)? @ -Differential Syncope: Valvular disease, hypertrophic cardiomyopathy, pulmonary embolism, tamponade, tachycardia, bradycardia, NH, hypovolemia, hemorrhage, dissection, anemia, intracranial hemorrhage, seizure, hypoglycemia, carbon monoxide poisoning, this is not meant to be an all-inclusive list. EKG interpreted by me (3pts min.). @ -See above X-rays interpreted by me (1pt min.). @ -X-ray of the chest shows no acute process CT interpreted by me (1pt min.). @ -CT scan the brain shows no acute processes U/S interpreted by me (1pt. min.). @ -None done What testing was considered but not performed or refused? (CT, X-rays, U/S, labs)? Why? @ -None What meds were considered but not given or refused? Why? @ -None Did you discuss the management of the patient with other professionals (professionals i.e. , PA, RIDE MECHANIC, lab, RT, psych nurse, social media job titles, security flex officer, teacher, custom protection officer, watch case polisher)? Give summary @ -No Was smoking cessation discussed for >3mins.? @ -No Was critical care preformed (if so, how long)? @ -No Were there social determinants of health that impacted care today? How? (Homeles sness, low income, unemployed, alcoholism, drug addiction, transportation, low edu. Level, literacy, decrease access to med. care, correction, rehab)? @ -No Was there de-escalation of care discussed even if they declined (Discuss DNR or withdrawal of care, Hospice)? DNR status @ -No What co-morbidities impacted this encounter? (DM, HTN, Smoking, COPD, CAD, Cancer, CVA, ARF, Chemo, Hep., AIDS, mental health diagnosis, sleep apnea, morbid obesity)? @ -None Was patient admitted / discharged? Hospital course, mention meds given and route, prescriptions, significant lab abnormalities, going to OR and other pertinent info. @ -52-year-old female presents to the emergency department after syncopal epi sode. She does not have any cardiac history. Patient has no significant comorbidities. Vital signs upon arrival are within acceptable limits. EKG is unremarkable. Chest x-ray and CT brain are negative. Labs are unremarkable. Patient observed emergency department for 3 hours and 20 minutes. Reevaluated bedside at 12:25 PM. Results from the labs and imaging studies were discussed with the patient. She is told to follow-up with her primary care doctor. Patient is agreeable with discharge. She is told that there does not appear to be an apparent cause for the swelling over her left supraclavicular soft tissue. Patient is agreeable plan she will be discharged Undiagnosed new problem with uncertain prognosis? @ -No Drug Therapy requiring intensive monitoring for toxicity (Heparin, Nitro, Insulin, Cardizem)? @ -No Were any procedures done? @ -No Diagnosis/symptom? Acute, or Chronic, or Acute on Chronic? Uncomplicated (without systemic symptoms) or Complicated (systemic symptoms)? @ -Syncope Side effects of treatment? @ -No Exacerbation, Progression, or Severe Exacerbation? @ -No Poses a threat to life or bodily function? How? (Chest pain, USA, NH, pneumonia, PE, COPD, DKA, ARF, appy, cholecystitis, CVA, Diverticulitis, Homicidal, Suicidal, threat to staff... and all critical care pts) @ -No - Lab Data Result diagrams: 08/03/23 11:18 08/03/23 11:18 Lab Results 08/03/23 08/03/23 08/03/23 Range/Units 09:11 11:18 11:18 WBC 10.4 (3.8-10.6) k/uL RBC 5.39 (3.80-5.40) m/uL Hgb 15.1 (11.4-16.0) gm/dL Hct 47.5 H (34.0-46.0) % MCV 88.1 (80.0-100.0) fL MCH 28.1 (25.0-35.0) pg MCHC 31.9 (31.0-37.0) g/dL RDW 13.0 (11.5-15.5) % Plt Count 256 (150-450) k/uL MPV 7.4 Neutrophils % 73 % Lymphocytes % 19 % Monocytes % 4 % Eosinophils % 2 % Basophils % 1 % Neutrophils # 7.7 (1.3-7.7) k/uL Lymphocytes # 1.9 (1.0-4.8) k/uL Monocytes # 0.4 (0-1.0) k/uL Eosinophils # 0.2 (0-0.7) k/uL Basophils # 0.1 (0-0.2) k/uL Sodium 140 (137-145) mmol/L Potassium 4.8 (3.5-5.1) mmol/L Chloride 108 H (98-107) mmol/L Carbon Dioxide 23 (22-30) mmol/L Anion Gap 9 mmol/L BUN 15 (7-17) mg/dL Creatinine 0.77 (0.52-1.04) mg/dL Est GFR (CKD-EPI)AfAm >90 (>60 ml/min/1.73 sqM) Est GFR (CKD-EPI)NonAf 88 (>60 ml/min/1.73 sqM) Glucose 100 H (74-99) mg/dL POC Glucose (mg/dL) 193 H (70-110) mg/dL POC [employer] Analyst Manpreet Aviles Calcium 9.6 (8.4-10.2) mg/dL Magnesium 2.3 (1.6-2.3) mg/dL Total Bilirubin 0.6 (0.2-1.3) mg/dL AST 23 (14-36) U/L ALT 17 (4-34) U/L Alkaline Phosphatase 67 (38-126) U/L Troponin I (0.000-0.034) ng/mL NT-Pro-B Natriuret Pep <20 pg/mL Total Protein 6.5 (6.3-8.2) g/dL Albumin 4.1 (3.5-5.0) g/dL 08/03/23 Range/Units 11:18 WBC (3.8-10.6) k/uL RBC (3.80-5.40) m/uL Hgb (11.4-16.0) gm/dL Hct (34.0-46.0) % MCV (80.0-100.0) fL MCH (25.0-35.0) pg MCHC (31.0-37.0) g/dL RDW (11.5-15.5) % Plt Count (150-450) k/uL MPV Neutrophils % % Lymphocytes % % Monocytes % % Eosinophils % % Basophils % % Neutrophils # (1.3-7.7) k/uL Lymphocytes # (1.0-4.8) k/uL Monocytes # (0-1.0) k/uL Eosinophils # (0-0.7) k/uL Basophils # (0-0.2) k/uL Sodium (137-145) mmol/L Potassium (3.5-5.1) mmol/L Chloride (98-107) mmol/L Carbon Dioxide (22-30) mmol/L Anion Gap mmol/L BUN (7-17) mg/dL Creatinine (0.52-1.04) mg/dL Est GFR (CKD-EPI)AfAm (>60 ml/min/1.73 sqM) Est GFR (CKD-EPI)NonAf (>60 ml/min/1.73 sqM) Glucose (74-99) mg/dL POC Glucose (mg/dL) (70-110) mg/dL POC [employer] Analyst ID Calcium (8.4-10.2) mg/dL Magnesium (1.6-2.3) mg/dL Total Bilirubin (0.2-1.3) mg/dL AST (14-36) U/L ALT (4-34) U/L Alkaline Phosphatase (38-126) U/L Troponin I <0.012 (0.000-0.034) ng/mL NT-Pro-B Natriuret Pep pg/mL Total Protein (6.3-8.2) g/dL Albumin (3.5-5.0) g/dL Disposition Clinical Impression: Syncope Disposition: HOME SELF-CARE Condition: Good Is patient prescribed a controlled substance at d/c from ED?: No Referrals: Antoine Hanna DO [Primary Care Provider] - 1-2 days Time of Disposition: 12:26
--- NOTE | 2023-08-03 10:16 | XR ---
EXAMINATION TYPE: XR chest 2V DATE OF EXAM: 08/03/2023 10:12 AM CLINICAL INDICATION:Female, 52 years old with history of syncope, supraclavicular swelling; COMPARISON: Chest radiographs from 08/03/2023 TECHNIQUE: XR chest 2V Frontal and lateral views of the chest. FINDINGS: Lungs/Pleura: There is no evidence of pleural effusion, focal consolidation, or pneumothorax. Pulmonary vascularity: Unremarkable. Heart/mediastinum: Cardiomediastinal silhouette is unremarkable. Musculoskeletal: No acute osseous pathology. IMPRESSION: No acute cardiopulmonary disease/process.
--- NOTE | 2023-08-03 11:27 | CT ---
EXAMINATION TYPE: CT brain cspine wo con CT DLP: 1512.10 mGycm, Automated exposure control for dose reduction was used. DATE OF EXAM: 08/03/2023 11:20 AM COMPARISON: None. CLINICAL INDICATION:Female, 52 years old with history of fall; syncope and fall x1 day ago TECHNIQUE: Brain: Multiple axial CT images of the brain were obtained without IV contrast. Cspine: Axial CT images from the skull base to the inferior aspect of T2 we obtained without intraven ous contrast. Coronal and sagittal reformatted images were also reviewed. FINDINGS: Brain: Extra-axial spaces: No abnormal extra-axial fluid collections. Ventricular system: Within normal limits Cerebral parenchyma: No acute intraparenchymal hemorrhage or mass effect. The kamara-white junction is well differentiated. Cerebellum: Unremarkable. Mass effect: No evidence of midline shift. Intracranial vasculature: unremarkable Soft tissues: Normal. Calvarium/osseous structures: No depressed skull fracture. Paranasal sinuses and mastoid air cells: Clear. Visualized orbits: Orbital contents are intact. Cervical spine: Fracture: None. Osseous structures: Multilevel degenerative disc disease changes with endplate spurring and disc oste ophyte complex's. Osteophytes impresses upon the posterior esophagus extending from C3 to C7. Vertebral alignment: Within normal limits. Spinal canal/Neural Foramina: Disc osteophyte complexes at L2-L3 with at least mild spinal canal sten osis. No evidence for significant neural foraminal stenosis. Neck soft tissues: Prevertebral soft tissues are within normal limits. Other: The airway is patent. The lung apices are clear. IMPRESSION: 1. No acute intracranial process. 2. No evidence of cervical spine fracture. 3. Mild multilevel degenerative disc disease.
[2023-08-03 11:47] LABS: Basophils # (A) 0.1 k/uL (0-0.2); Basophils % (A) 1 %; Eosinophils # (A) 0.2 k/uL (0-0.7); Eosinophils % (A) 2 %; HCT 47.5 % (34.0-46.0); HGB 15.1 gm/dL (11.4-16.0); Lymphocytes # (A) 1.9 k/uL (1.0-4.8); Lymphocytes % (A) 19 %; MCH 28.1 pg (25.0-35.0); MCHC 31.9 g/dL (31.0-37.0); MCV 88.1 fL (80.0-100.0); Mean Platelet Volume 7.4; Monocytes # (A) 0.4 k/uL (0-1.0); Monocytes % (A) 4 %; Neutrophils # (A) 7.7 k/uL (1.3-7.7); Neutrophils % (A) 73 %; Platelet Count 256 k/uL (150-450); RBC 5.39 m/uL (3.80-5.40); WBC 10.4 k/uL (3.8-10.6)
[2023-08-03 11:57] LABS: ALT 17 U/L (4-34); AST 23 U/L (14-36); African American GFR (CKD) >90 (>60 ml/min/1.73 sqM); Albumin 4.1 g/dL (3.5-5.0); Alkaline Phosphatase 67 U/L (38-126); Anion Gap 9 mmol/L; Blood Urea Nitrogen 15 mg/dL (7-17); Calcium 9.6 mg/dL (8.4-10.2); Carbon Dioxide 23 mmol/L (22-30); Chloride 108 mmol/L (98-107); Glucose 100 mg/dL (74-99); Magnesium 2.3 mg/dL (1.6-2.3); Non-African American GFR(CKD) 88 (>60 ml/min/1.73 sqM); Potassium 4.8 mmol/L (3.5-5.1); Sodium 140 mmol/L (137-145); Total Bilirubin 0.6 mg/dL (0.2-1.3); Total Protein 6.5 g/dL (6.3-8.2)
[2023-08-03 12:06] LABS: NT-Pro-B-Type Natriuretic Pept <20 pg/mL
[2023-08-03] MEDS: SODIUM CHLORIDE 0.9% 1,000 ML IV STA (12:06)
[2023-08-03 13:17] VITALS: BP 153/88; PULSE 79
== END 2023-08-03 12:43 | disposition home or self-care (01) ==
LOC: EC 09:04
DX: R55 Syncope and collapse (principal); R22.32 Localized swelling, mass and lump, left upper limb
CPT/HCPCS: 36415; 70450; 71046; 72125; 80053; 83735; 83880; 84484; 85025; 93005; 96360; 99284

== ENCOUNTER → 2023-11-22 | Outpatient (CLI) | payer OTHER ==
--- NOTE | 2023-12-10 20:33 | MM ---
Reason for Exam: Screening (asymptomatic). Last screening mammogram was performed 12 month(s) ago. Patient History: Menarche at age 11. First Full-Term at age 24. Left ovary removed at age 48. Right ovary removed at age 48. Hysterectomy at age 48. Postmenopausal. Hormonal Contraceptives, from age 17 until age 30. Currently using Estrogen and Progesterone, starting at age 48. Risk Values: Blanca 5 year model risk: 1.3%. NCI Lifetime model risk: 9.3%. Prior Study Comparison: 03/15/2020 Bilateral Screening Mammogram, MERGED WITH [facility]. 11/17/2022 Bilateral MG screening mammo w CAD, MERGED WITH [facility]. Tissue Density: The breasts are heterogeneously dense, which may obscure small masses. Findings: Analyzed By CAD. There is no suspicious group of microcalcifications or new suspicious mass in either breast. Overall Assessment: Negative, BI-RAD 1 Management: Screening Mammogram of both breasts in 1 year. . Patient should continue monthly self-breast exams. A clinical breast exam by your physician is recommended on an annual basis. This exam should not preclude additional follow-up of suspicious palpable abnormalities. Note on Blanca scores and lifetime risk: 1. A Blanca score greater than 3% is considered moderate risk. If this is the case, consider specialist referral to assess eligibility for a risk reducing agent. 2. If overall lifetime risk for the development of breast cancer is 20% or higher, the patient may qualify for future screening with alternating mammogram and breast MRI. Electronically signed and approved by: Jessica Vizcarra M.D. Radiologist
== END | disposition home or self-care (01) ==
LOC: RADMAMWWP 13:49
PROVIDERS: ATTEND Obstetrics & Gynecology
DX: Z12.31 Encounter for screening mammogram for malignant neoplasm of breast
CPT/HCPCS: 77067